=== PATIENT | male | born 1955 | race Caucasian/White ===

== ENCOUNTER → 2018-08-10 08:21 | Outpatient (CLI) | payer OTHER, SELFPAY ==
[2018-08-06 14:12] VITALS: BMI 24.7
[2018-08-10 12:27] LABS: Absolute Lymphocyte Count 1.59 X10^3/ul (0.83-4.51); Absolute Neutrophil Count 2.4 X10^3/uL (2.0-7.7); Basophil# 0.03 X10^3/uL; Basophil% 0.6 % (0-1); Eosinophil# 0.06 X10^3/uL; Eosinophils% 1.3 % (0-5); Hematocrit 46.2 % (40-54); Hemoglobin 14.8 g/dl (13.0-16.5); Lymphocyte # 1.59 X10^3/ul (4.0); Lymphocyte % 34.4 % (19-41); Mean Corpuscular Hgb 32.2 pg (27.0-32.0); Mean Corpuscular Volume 100.7 fL (80-94); Monocyte# 0.53 X10^3/uL; Monocyte% 11.5 % (0-10); Neutrophil # 2.41 X10^3/uL (2.7-7.7); Neutrophil % 52.2 % (47-70); Platelet Count 259 K/mm3 (150-450); RBC Distribution Width CV 12.8 % (11.6-14.6); RBC Distribution Width SD 46.6 fl (35.1-43.9); Red Blood Count 4.59 M/mm3 (4.6-6.2); White Blood Count 4.6 K/mm3 (4.4-11.0)
[2018-08-10 12:33] LABS: POSITIVE COUNT NO; POSITIVE DIFFERENTIAL NO; POSITIVE MORPHOLOGY NO
[2018-08-10 12:38] LABS: AST(SGOT) 27 U/L (15-37); Alanine Aminotransfer ALT/SGPT 33 U/L (16-61); Albumin, Serum 3.7 g/dL (3.2-5.0); Alkaline Phosphatase 84 U/L (45-117); Anion Gap 8 (5-15); BUN 16 mg/dL (7-18); BUN/Creat Ratio 13.7 RATIO (10-20); Calcium,Total 8.6 mg/dL (8.5-10.1); Chloride 107 mmol/L (98-107); Cholesterol 179 mg/dL (200); Creatinine, Serum 1.17 mg/dL (0.70-1.30); EST Glomerular Filtration Rate 67 mL/min (>60); Est Glom Filt Rate - Afr Amer 81 mL/min (>60); Globulin 3.7 g/dL (2.2-4.2); Glucose 89 mg/dL (74-106); High Density Lipoprotein 39 mg/dL; PSA,Total - Annual Screen 0.59 ng/mL (0.00-4.00); Potassium 4.2 mmol/L (3.5-5.1); Protein, Total 7.4 g/dL (6.4-8.2); Sodium Level 143 mmol/L (136-145); Triglycerides 100 mg/dL; Very Low Density Lipoprotein 20 mg/dL (5-40)
== END ==
PROVIDERS: Family Provider Family Medicine; PCP Internal Medicine; Visit Provider Internal Medicine
DX: Z00.00 Encounter for general adult medical examination without abnormal findings (principal); E78.5 Hyperlipidemia, unspecified; K58.9 Irritable bowel syndrome, unspecified; Z12.5 Encounter for screening for malignant neoplasm of prostate
CPT/HCPCS: 36415; 80053; 80061; 84153; 85025; G0103

== ENCOUNTER → 2019-10-23 13:21 | Outpatient (CLI) | payer OTHER, SELFPAY ==
[2019-10-23 12:58] VITALS: BMI 24.7
[2019-10-23 15:54] LABS: CRP < 2.90 mg/L (0.0-3.0); Rheumatoid Factor < 10.0 IU/mL (<15)
[2019-10-23 15:56] LABS: Erythrocyte Sedimentation Rate 12 mm/hr (0-20)
--- OUTSIDE RECORDS SUMMARY | 2020-03-08 07:10 | XMS RPT_ITS | CCD ---
:1955 External Reference #:[id number] Author Organization [facility] Care Team Providers Name Role Phone Carla Looney PA-C Unavailable CHIRAG, (CADMIUM BURNER) Unavailable Unavailable KONTAK, R Unavailable Unavailable KONTAK, R Unavailable Unavailable KONTAK, R Unavailable Unavailable Medications Medication Name Sig Date Prescriber Location No information No information [facility] Surgica l available. available. [facility] ([phone]) Problems Category Problem Name Status Date Location Deficiency and other Anemia due to Active 01-09-2017 - [facility] Rob rgical anemia chronic blood loss [facility] ([id number]) Results Result Name Value Range Unit Interpretation Flag Date Location psa, screening on PSA, Screening 0.64 0.00-2.59 ng/mL Normal 06-29-2017 [facility] ([id number]) Comment: Result Comment: Total PSA te st methodology used is the Electrochemiluminescence Imm unoassay. Performed By: #### PSAS1 ### #[facility] [id number] [place], [place] [phone] progress on 2017-06 PROGRESS HNO ID: [id number]: Epi matthews 06-29-2017 [facility] KontakService: (none)Author Type: [place] PhysicianType: Progress NotesFiled: ([id number]) 06/29/2017 10:19 AMNote Text:Chief ComplaintPatient presents with:Follow Up: med refillHPIRonald P Chelsey is a 62 year old male who presents here today forfollow-up of chronic foot pain. He anticipates alf soon. He usesthe Vicoprofen sporadically for the foot pain , requests refill before hisinsurance eclipses.Otherwise he's in good health. The patient denies dysuria, frequency orhematuria.Past medical history, appointments, medications, allergies reviewed.Previous Medical HistoryPAST MEDICAL HISTORYDiagnosis Date- BPH (benign prostatic hyperplasia) HISTORY- Cancer (HCC) SKIN CA, WITH REMOVAL.- Chronic pain- DJD (degenerative joint disease) of lumbar spine- IBS (irritable bowel syndrome)- Insomnia- OA (osteoarthritis)Previous Surgical HistoryPAST SURGICAL HISTORYProcedure Laterality Date- PAST SURGICAL HISTORY OF 05/2016 some teeth pulled- RECONSTRUCT PROX HUMERAL IMPLANT 2009 Arthroplasty, right shoulderFamily HistoryFAMILY HISTORYProblem Relation Age of Onset- Hypertension Father- Colon Cancer Father- Stroke Father- Prostate Cancer Paternal Uncle- Skin Cancer BrotherPatient AllergiesALLERGIESNo Known AllergiesCurrent MedicationsCurrent Outpatient Prescriptions on File Prior to Visit:HYDROcodone-Ibuprofen (VICOPROFEN) 7.5-200 mg per tablet Take 1 tablet bymouth every 8 hours as needed.traMADol (ULTRAM) 50 mg tablet Take 1-2 tablets by mouth every 8 hours asneeded for Pain.ibuprofen (ADVIL) 200 mg tablet Take 400 mg by mouth twice daily.No current facility-administered medications on file prior to visit.Social HistorySocial History Marital status: Spouse name: Years of education: Number of children: 1Occupational 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 Drug use: No Sexual activity: NoROS:General: Feels well, no weight changes, fever, chills.HEENT: No sinus congestion, earache, sore throat.Cardiac: No chest pain, palpitations, shortness of breathResp: No cough, wheeze.GI: No reflux symptoms, food intolerance, bowel changes.: No urinary frequency, dysuria.MS: No pain or joint complaints.PHYSICAL EXAMINATIONBP 126/86 Pulse 80 Resp 12 Wt 83.7 kg (184 lb 9.6 oz) BMI 25.04kg/k5Apbibqx: Alert and oriented, no distress, pleasant and cooperative.Heart: Regular, normal S1 and S2, no murmurs, rubs, or gallopsLungs: Clear to auscultation bilaterallyAbdomen: BenignExtremities: Feet/ankles without edema, posterior tibial pulses full andsymmetricalboutonniere deformity noted 3rd toes bilat.Health Maintenance ListINFLUENZA(1) due on 01/20/2017DIABETES SCREEN due on 02/12/2017LIPID SCREEN due on 02/12/2019TETANUS due on 2COLORECTAL CANCER SCREENING,SEE MODIFIER due on 2PROSTATE CANCER SCREENING DISCUSSION CompletedHEPATITIS C SCREENING CompletedData reviewedAssessment/Plan:(M77.9) Enthesopathy of ankle and tarsus (primary encounter diagnosis)Comment: chronic painPlan: HYDROcodone-Ibuprofen (VICOPROFEN) 7.5-200 mg per tablet, traMADol (ULTRAM) 50 mg tablet(Z12.5) Screening for prostate cancerComment: JADEN done today. The meaning of a false positive PSA and falsenegative PSA has been discussed, and the patient indicates theirunderstanding of the limitations of this screening test.Plan: PSA/PROSTSPECAG SCRN, PSA/PROSTSPECAG SCRN(G89.29) Other chronic painComment:Plan: HYDROcodone-Ibuprofen (VICOPROFEN) 7.5-200 mg per tablet, traMADol (ULTRAM) 50 mg tablet He'll be weaning off the hydrocodone, he will likely need tocontinue on the tramadol for fdc pain control.Elevated bp on arrival today. Repeat OK, he'll check it with the nurse atwork.Signed Prescriptions Disp Refills HYDROcodone-Ibuprofen (VICOPROFEN) 7.5-200 mg per tablet 60 tablet 0 Sig: Take 1 tablet by mouth every 8 hours as needed for up to 30 days. RHETT Class: C-II EVER: No traMADol (ULTRAM) 50 mg tablet 120 tablet 2 Sig: Take 1-2 tablets by mouth every 8 hours as needed for Pain for upto 90 days. RHETT Class: C-IV EVER: NoRTO: 6 mos if he manages to stretch the med out that long.Epi Guillen MD progress on 2017-01 PROGRESS HNO ID: [id number]: Epi matthews 02-03-2017 [facility] KontakService: (none)Author Type: [place] ([id number]) PhysicianType: Progress NotesFiled: 02/03/2017 1:00 PMNote Text:Pt f/u as above. Pt interviewed and examined.Bp BP 132/84 Pulse 91 Resp 16 Wt 84.8 kg (187 lb) BMI 25.36 kg/m2.PHYSICAL EXAMINATIONBP 132/84 Pulse 91 Resp 16 Wt 84.8 kg (187 lb) BMI 25.36 kg/j5Hyfekkj: Alert and oriented, no distress, pleasant and cooperative.Heart: Regular, normal S1 and S2, no murmurs, rubs, or gallopsLungs: Clear to auscultation bilaterallyAbdomen: BenignExtremities: Feet/ankles without edema, posterior tibial pulses full andsymmetricalAssessment/Plan:(G89.2 9) Other chronic painComment: stable on medications.Plan: HYDROcodone-Ibuprofen (VICOPROFEN) 7.5-200 mg per tablet He predicts taper off when he's off the concrete steps.(M77.9) Enthesopathy of ankle and tarsusComment:Plan: HYDROcodone-Ibuprofen (VICOPROFEN) 7.5-200 mg per tabletOARRS website checked and validated. All prescriptions have beenAPPROPRIATELY filled. No suspicious activity was identified.- 02/03/2017by GORDY Duncanigned Prescriptions Disp Refills HYDROcodone-Ibuprofen (VICOPROFEN) 7.5-200 mg per tablet 60 tablet 0 Sig: Take 1 tablet by mouth every 8 hours as needed. RHETT Class: C-II EVER: No traMADol (ULTRAM) 50 mg tablet 120 tablet 2 Sig: Take 1-2 tablets by mouth every 8 hours as needed for Pain. RHETT Class: C-IV EVER: Khadijah is having fasting labs at [facility].RTO: q 3 mos.Epi Guillen MD PROGRESS HNO ID: [id number]: Epi matthews 02-03-2017 [facility] KontakService: (none)Author Type: [place] ([id number]) PhysicianType: Progress NotesFiled: 02/03/2017 1:00 PMNote Text:Chief ComplaintPatient presents with:Medication reviewHPRefugiomary Mesa is a 61 year old male who presents here today formedication review and is in need of refills.Lower back/shoulder pain and bilateral feet arthritis: Taking Tramadol inthe morning and early afternoon along with Advil 400 mg along with it.Uses vicoprofen for severe pain. Aches pretty bad in the morning inlower back and shoulders and as day progresses get better. Bilateral feetpain persists due to walking in concrete floors. Wants to stop painmedication when he retires. Pain is not changing in frequency orintensity. Has not been taking advil since Monday because he is havinga colonoscopy on Monday.Past medical history, appointments, medications, allergies reviewed.Previous Medical HistoryPAST MEDICAL HISTORYDiagnosis Date- BPH (benign prostatic hyperplasia) HISTORY- Cancer (HCC) SKIN CA, WITH REMOVAL.- Chronic pain- DJD (degenerative joint disease) of lumbar spine- IBS (irritable bowel syndrome)- Insomnia- OA (osteoarthritis)Previous Surgical HistoryPAST SURGICAL HISTORYProcedure Laterality Date- PAST SURGICAL HISTORY OF 05/2016 some teeth pulled- RECONSTRUCT PROX HUMERAL IMPLANT 2009 Arthroplasty, right shoulderFamily HistoryFAMILY HISTORYProblem Relation Age of Onset- Hypertension Father- Colon Cancer Father- Stroke Father- Prostate Cancer Paternal UnclePatient AllergiesALLERGIESNo Known AllergiesCurrent MedicationsCurrent Outpatient Prescriptions on File Prior to Visit:HYDROcodone-Ibuprofen (VICOPROFEN) 7.5-200 mg per tablet Take 1 tablet bymouth every 8 hours as needed.traMADol (ULTRAM) 50 mg tablet Take 1-2 tablets by mouth every 8 hours asneeded for Pain.ibuprofen (ADVIL) 200 mg tablet Take 400 mg by mouth twice daily.No current facility-administered medications on file prior to visit.Social HistorySocial History Marital status: Spouse name: Years of education: Number of children: 1Occupational 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 Drug use: No Sexual activity: NoROS:General: Feels well, no weight changes, fever, chills.HEENT: No sinus congestion, earache, sore throat.Cardiac: No chest pain, palpitations, shortness of breathResp: No cough, wheeze.GI: No reflux symptoms, food intolerance, bowel changes. Denieshematozemia or black tarry stool.: No urinary frequency, dysuria,or hematuriaMS: No pain or joint complaints.EXAM:BP 132/84 Pulse 91 Resp 16 Wt 84.8 kg (187 lb) BMI 25.36 kg/x3Kxqozmu Appearance: Well appearing, alert, in no acute distress,well-hydrated, well nourished..Neck: Supple, no adenopathy; thyroid symmetric, normal size, no bruits.Lungs: Lungs clear to auscultation. No wheezing, rhonchi, rales.Heart: RRR without murmur, gallop, or rubs. No ectopy.Extremities: Feet/ankles with trace edema. Pedal pulses 1+ andsymmetrical. Cap refill less than 3 seconds bilaterally.Health Maintenance ListZOSTAVAX due on 2015 will check with insurance regarding payment andconsiderCOLORECTAL CANCER SCREENING,SEE MODIFIER due on 12/26/2016 gettingColonoscopy on Monday )02/06/2017INFLUENZA(1) due on 01/20/2017[facility] on 02/12/2017 [facility] andwill bring inLIPID SCREEN due on 02/12/2019 [facility] and willbring in results.TETANUS due on 2PROSTATE CANCER SCREENING DISCUSSION CompletedHEPATITIS C SCREENING CompletedASSESSMENT/PLAN:1. Other chronic pain - ICD9: 338.29, ICD10: G89.29- Continue treatment plan for pain, too wean off once retires- Follow-up in 3 months for evaluation of pain- HYDROCODONE 7.5 MG-IBUPROFEN 200 MG TABLET2. Enthesopathy of ankle and tarsus - ICD9: 726.70, ICD10: M77.9- Continue treatment plan for pain, patient to retire in June/Arturo will not be working on hard concrete floors and at that time will wean- HYDROCODONE 7.5 MG-IBUPROFEN 200 MG TABLET take for sever pain- Follow-up in 3 months for evaluation of painOARRS website checked and validated. All prescriptions have beenAPPROPRIATELY filled. No suspicious activity was identified.- 02/03/2017will Nunes PodlogNiranjan torres PodlogJANET torres on 2017-02-03 CNOV Office Visit Normal 02-03-2017 [place] and (LELO) --------MICHELLE MESA [facility] P ([id number]) 1955 MDat e Time Provider Department02/03/17 9:40 AM EPI GUILLEN During Clev eland your visit today, we recorde d the following information about you: Pulse Respiration Blood pressure ( 74002) Weight 91/minute 16/minute 1 84.8 kgJefferanil Guillen MD 02/03/2017 1:00 PM SignedChief ComplaintPatient presents wi th:Medication reviewHPIRonald Jorge Mesa is a 61 year old male who presents here today for medicationrev iew and is in need of refills.Lower back/shoulder pain and bilateral feet arthritis: Taking Tramadol i n themorning and early afternoon along with Advil 400 mg along with it. Usesvicoprofen for severe pa in. Aches ANDquot;pretty bad in the morningANDquot; inlower back and shoulders and as day progres ses get better. Bilateral feet painpersists due to walking in concrete floors. Wants to stop pain m edication whenhe retires. Pain is not changing in frequency or intensity. Has not been takingadvil sin ce Monday because he is having a colonoscopy on Monday.Past medical history, appointments, medic ations, allergies reviewed.Previous Medical HistoryPAST MEDICAL HISTORYDiagnosis Date- BPH ( benign prostatic hyperplasia) HISTORY- Cancer (HCC) SKIN CA, WITH REMOVAL.- Chronic pain- DJD (degenerative joint disease) of lumbar spine- IBS (irritable bowel syndrome)- Insomnia- OA (ost eoarthritis)Previous Surgical HistoryPAST SURGICAL HISTORYProcedure Laterality Date- PAST SURGIC AL HISTORY OF 05/2016 some teeth pulled- RECONSTRUCT PROX HUMERAL IMPLANT 2010 Arthroplasty, right romeo ulderFamily HistoryFAMILY HISTORYProblem Relation Age of Onset- Hypertension Father- Colon C ancer Father- Stroke Father- Prostate Cancer Paternal UnclePatient AllergiesALLERGIESNo Known A llergiesCurrent MedicationsCurrent Outpatient Prescriptions on File Prior to Visit:HYDROcodone-Ibuprof en (VICOPROFEN) 7.5-200 mg per tablet Take 1 tablet by mouthevery 8 hours as needed.traMADol (ULTRAM) 50 mg tablet Take 1-2 tablets by mouth every 8 hours asneeded for Pain.ibuprofen (ADVIL) 200 m g tablet Take 400 mg by mouth twice daily.No current facility-administered medications on file prior to visit.Social HistorySocial History Marital status: Spouse name: Years of education: Number o f children: 1Occupational 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 Drug use: No Sexual activity: NoROS:General: Feels well, no weight changes, fever, chills.HEENT : No sinus congestion, earache, sore throat.Cardiac: No chest pain, palpitations, shortness of b reathResp: No cough, wheeze.GI: No reflux symptoms, food intolerance, bowel changes. Denies hemato zemia orblack tarry stool.: No urinary frequency, dysuria,or hematuriaMS: No pain or join t complaints.EXAM:BP 132/84 Pulse 91 Resp 16 Wt 84.8 kg (187 lb) BMI 25.36 kg/j5Tpzvtjo Appea kraig: Well appearing, alert, in no acute distress, well-hydrated,well nourished..Neck: Supple, no adenopathy; thyroid symmetric, normal size, no bruits.Lungs: Lungs clear to auscultation. No wheezing , rhonchi, rales.Heart: RRR without murmur, gallop, or rubs. No ectopy.Extremities: Feet/ank les with trace edema. Pedal pulses 1+ and symmetrical. Caprefill less than 3 seconds bilaterally.Health Maintenance ListZOSTAVAX due on 2015 will check with insurance regarding payment andconside rCOLORECTAL CANCER SCREENING,SEE MODIFIER due on 12/26/2016 getting Colonoscopyon Monday ) 017INFLUENZA(1) due on 01/20/2017, [facility] due on 02/12/2017 [facility] and willbring inLIPID SCREEN due on 02/12/2019 [facility] and will bringin results.TETANUS due on 2PROSTATE CANCER SCREENING DISCUSSION CompletedHEPATITIS C SCREENING CompletedASSESSMENT/PLAN:1. Other chronic pain - ICD9: 338.29, ICD10: G89.29- Continue treatment plan for pain, too wean off once retires- Follow-up in 3 months for ev aluation of pain- HYDROCODONE 7.5 MG-IBUPROFEN 200 MG TABLET2. Enthesopathy of ankle and ta rsus - ICD9: 726.70, ICD10: M77.9- Continue treatment plan for pain, patient to retire in /July andwill not be working on hard concrete floors and at that time will wean- HYDROCODONE 7.5 M G-IBUPROFEN 200 MG TABLET take for sever pain- Follow-up in 3 months for evaluation of painOARRS webs ite checked and validated. All prescriptions have been APPROPRIATELYfilled. No susp icious activity was identified.- 02/03/2017 by Niranjan Gillespie, Shadia Guillen MD 02/03/2017 1:00 PM SignedPt f/u as above. Pt interviewed and examined.Bp BP 132/84 Puls e 91 Resp 16 Wt 84.8 kg (187 lb) BMI 25.36 kg/m2.PHYSICAL EXAMINATIONBP 132/84 Pulse 91 Resp 16 Wt 84.8 kg (187 lb) BMI 25.36 kg/i3Razblqd: Alert and oriented, no distress, pleas ant and cooperative.Heart: Regular, normal S1 and S2, no murmurs, rubs, or gallopsLungs: Clear to auscu ltation bilaterallyAbdomen: BenignExtremities: Feet/ankles without edema, posterior tibial pulses full andsymmetricalAssessment/Plan:(G89.29) Other chronic painComment: stable on medications.Plan: HYDROco done-Ibuprofen (VICOPROFEN) 7.5-200 mg per tablet He predicts taper off when he's off the concrete s teps.(M77.9) Enthesopathy of ankle and tarsusComment:Plan: HYDROcodone-Ibuprofen (VICOP ROFEN) 7.5-200 mg per tabletOARRS website checked and validated. All prescriptions have been APPR OPRIATELYfilled. No suspicious activity was identified.- 02/03/2017 by GORDY Duncanigned Pres criptions Disp Refills HYDROcodone-Ibuprofen (VICOPROFEN) 7.5-200 mg per tablet 60 tablet 0 Sig: Take 1 tablet by mouth every 8 hours as needed. RHETT Class: C-II EVER: No traMADol (ULTRAM) 50 mg tabl et 120 tablet 2 Sig: Take 1-2 tablets by mouth every 8 hours as needed for Pain. RHETT Class: C-IV EVER: Manjula Rosas is having fasting labs at [facility].RTO: q 3 mos.VENANCIO Duncaneferring Provider : SELF [[id number]]Allergies As of Date: 02/03/2017(No Known Allergies)Date Reviewed: 02/03/2017Reviewed by: Aleisha ([facility]) CAITY Buck - Fully AssessedReason for Visit: Medication review [Other]Vis it Diagnoses:Other chronic pain [G89.29] Enthesopathy of ankle and tarsus [M77.9]Order(s):HYDROcodone- Ibuprofen (VICOPROFEN) 7.5-200 mg per tabletTake 1 tablet by mouth every 8 hours as needed.Disp: 60 tab letRfl: 0 traMADol (ULTRAM) 50 mg tabletTake 1-2 tablets by mouth every 8 hours as needed for Pain.Dis p: 120 tabletRfl: 2Prescriptions as of 02/03/2017 Sig: HYDROCODONE 7.5 MG-IBUPROFEN * Take 1 tablet by mouth every * TRAMADOL 50 MG TABLET Take 1-2 tablets by mouth julio* IBUPROFEN 200 MG TABLET Take 400 mg by mouth twice da*Problem List As Of Date 02/03/2017 Noted Resolved Arthritis (feet) [M 19.90] INVALID FOR* More... Enthesopathy of ankle and tarsus [M77.9] INVALID FOR* Special screeni ng for malignant neoplasms, colo*INVALID FOR* Chronic pain [G89.29] DJD (degenerative joint disease) of lumbar spin*Prescriptions ordered this encounter Disp Refills Start End HYDROCODONE 7.5 MG-IBUPR OFEN 200 MG * 60 t* 0 02/03/2017 Class: Print RX Route: ORAL Sig: Take 1 tablet by mouth every 8 hour s as needed. TRAMADOL 50 MG TABLET 120 * 2 02/03/2017 Class: Print RX Route: ORAL Sig: Take 1-2 ta blets by mouth every 8 hours as needed for Pain.Medications Discontinued During This Encounter HYDROc odone-Ibuprofen (VICOPROFEN) 7* 60 t* 0 10/30/2016 02/03/2017 Class: Print RX Route: ORAL Sig: Take 1 t ablet by mouth every 8 hours as needed. Disc: Reason for discontinue is not on file. traMADol (ULTRA M) 50 mg tablet 120 * 1 09/30/2016 02/03/2017 Class: Print RX Route: ORAL Sig: Take 1-2 tablets by montse th every 8 hours as needed for Pain. Disc: Reason for discontinue is not on file.Encounter Number: [id number] Status:Closed by RADHA GUILLEN MD on 02/03/17 history physical on 2016-12-01 HISTORY HNO ID: [id number]: Antoinette (Lisa) Manjula nathan 12-01-2016 [place] PHYSICAL ThorpeService: (none)Author Type: Nurse Clinic PractitionerType: HANDPFiled: 12/01/2016 [place] 10:36 AMNote Text:Michelle Mesa a 61 ([id number]) year old male who is referred by Dr. Guillen [facility] colonoscopy. The patient has not been seen previously. Thepatient reports a family history of colon cancer in that his father hadthe disease.The patient was seen by Dr. Ayo Lopez for colonoscopy 12/27/11. Theprocedure report has been reviewed and findings as follows:Findings:?? ? The digital rectal exam was normal. Pertinent negatives includenormal?? ? sphincter tone and normal prostate (size, shape, and consistency).The?? ? colon (entire examined portion) appeared normal. It did require some?? ? effort and abdominal support to gain access and transverse theascending?? ? colon but with increased sedation this was achieved.Impression: ?- The entire examined colon is normal.Presenting complaint: The patient denies change in bowel habits or rectalbleeding. Having a bowel movement about every other day. It might be upto four days between bowel movements. The patient tells me for years Iget a sharp pain that moves across my belly. Shortly after that I willhave diarrhea. This occurs about ever couple months.The patient reports that he tends to get gassy intermittently, usually inthe morning. He notes that he does eat ice cream before bed some nights.I have recommended that he try taking Lactaid tablets with the ice creamto see if this decreases the gas.REVIEW OF SYSTEMS:GENERAL: Reported 10 pound weight loss during tooth extraction and newdentures.RESPIRATORY: Negative for cough, hemoptysis, wheezing, COPD, dyspnea orshortness of breathCARDIOVASCULAR: Negative for chest pain, leg swelling, hypertension, CHFor palpitationsGI: The patient states that his appetite has been good. He does gethungry. There has been no nausea, no vomiting. He denies dysphagia anddenies odynophagia. There has not been indigestion or heartburn. There hasnot been regurgitation. Bowel habits have been regular. There hasoccasionally been diarrhea. There has not been constipation. The patientdenies rectal bleeding. There has not been melena. Intermittent abdominalpain that is located in the mid abdomen, as reported above.MUSCULOSKELETAL: Positive for low back pain, shoulders and feet. TakesTramadol.PSYCH: Negative for sleep disturbance, mood disorder and recentpsychosocial stressors.HEMATOLOGY/LYMPHOLOGY Negative for prolonged bleeding, bruising easily orswollen nodesNEURO: No history of headaches, syncope, paralysis, seizures or tremorsAll other reviewed and negative other than HPI.PAST MEDICAL HISTORYDiagnosis Date- BPH (benign prostatic hyperplasia) HISTORY- Cancer (HCC) SKIN CA, WITH REMOVAL.- Chronic pain- DJD (degenerative joint disease) of lumbar spine- IBS (irritable bowel syndrome)- Insomnia- OA (osteoarthritis)PAST SURGICAL XFJOSEU94/2017: PAST SURGICAL HISTORY OF Comment: some teeth [id number]: RECONSTRUCT PROX HUMERAL IMPLANT Comment: Arthroplasty, right shoulderFAMILY HISTORY Hypertension Father Colon Cancer Father Stroke Father Prostate Cancer Paternal UncleCurrent Outpatient Prescriptions:HYDROcodone-Ibuprofen (VICOPROFEN) 7.5-200 mg per tablet Take 1 tablet bymouth every 8 hours as needed. Disp: 60 tablet Rfl: 0traMADol (ULTRAM) 50 mg tablet Take 1-2 tablets by mouth every 8 hours asneeded for Pain. Disp: 120 tablet Rfl: 1ibuprofen (ADVIL) 200 mg tablet Take 400 mg by mouth twice daily. Disp:Rfl:No current facility-administered medications for this visit.SOCIAL HISTORY:Patient is . He has never smoked and reports his alcohol use asnever.PHYSICAL EXAMINATION:Blood pressure 111/73, pulse 77, height 182.9 cm (6'), weight 84.1 kg (185lb 6.4 oz).General Appearance: Well appearing, alert, in no acute distress,well-hydrated, well nourished.Skin: Skin color, texture, turgor normal, no suspicious rashes or lesions.Eyes: Anicteric sclera.Lungs: Lungs clear to auscultation. No wheezing, rhonchi, rales.Heart: RRR without murmur, gallop, or rubs. No ectopy.Abdomen: Normal abdominal exam, Abdomen soft, non-tender. Bowel soundsnormal. No masses, organomegaly.Extremities: No deformities or edema.Peripheral Pulses: Normal.Neurologic: Gait normal. Sensation grossly intact.Impression: family history of colon cancerPlan: This patient will be scheduled for a colonoscopy with MAC. He willbe using GoLytely as the prep. The preparation, as well as the procedure,has been explained in detail. The risks, benefits, anticipated outcomesand possible complications were mentioned. I explained the procedure inunderstandable terms and the patient was given printed material concerningthe planned procedure. The patient had the opportunity to ask questionsconcerning the planned procedure. The patient freely consents to theplanned procedure.The patient is asked to call with any questions for concerns, or shouldthere be any change in health status between now and the scheduledprocedure.I have suggested he try Lactaid tablets with the evening ice cream.I have personally interviewed and examined this patient. I have read theinformation the SENIOR COMPUTER SPECIALIST documented in this encounter. This visit was at least25 minutes in length with a majority of the time spent in review of thepast records with the patient, discussion and counseling.Antoinette Trent RN [employer] WORKER domi on 2016-12-01 CNOV Office Visit Normal 12-01-2016 Dena and ([facility]) --------MICHELLE EMSA P ([id number]) 1955 [facility]12/01/16 9:00 AM ANTOINETTE TRENT ([facility]) [facility] Thomas hernandez During your visit today, we recorded the following information about you: Pulse Blood pressure Weight (0000 0) Height 77/minute 111/73 84.1 kg 1.829 Raymond Trent RN CNP 12/01/2016 10:36 AM Lincoln Patel Chelsey a 61 year old male wh o is referred by Dr. Ruddy barraganance colonoscopy. The patient has not been seen previously. Th e patientreports a family history of colon cancer in that his father had the disease.The patient was seen by Dr. Ayo Lopez for colonoscopy 12/27/11. The procedurereport has been reviewed and findings as fol lows:Findings:?? ? The digital rectal exam was normal. Pertinent negatives include normal?? ? sphincter tone and normal prostate (size, shape, and consistency). The?? ? colon (entire examined portion) ap peared normal. It did require some?? ? effort and abdominal support to gain access and transverse t he ascending?? ? colon but with increased sedation this was achieved.Impression: ?- The entire examined colon is normal.Presenting complaint: The patient denies change in bowel habit s or rectalbleeding. Having a bowel movement ANDquot;about every other dayANDquot;. It mightbe up t o four days between bowel movements. The patient tells me ANDquot;foryears I get a sharp pain that move s across my belly. Shortly after that I willhave diarrheaANDquot;. This occurs about ever couple mon ths.The patient reports that he tends to get gassy intermittently, usually in themorning. He notes that he does eat ice cream before bed some nights. I haverecommended that he try taking Lactaid tablets w ith the ice cream to see ifthis decreases the gas.REVIEW OF SYSTEMS:GENERAL: Reported 10 pound weight loss during tooth extraction and new dentures.RESPIRATORY: Negative for cough, hemoptys is, wheezing, COPD, dyspnea orshortness of breathCARDIOVASCULAR: Negative for chest pain, leg swelling , hypertension, CHF orpalpitationsGI: The patient states that his appetite has been good. He does get h ungry.There has been no nausea, no vomiting. He denies dysphagia and deniesodynophagia. There has not been indigestion or heartburn. There has not beenregurgitation. Bowel habits have been regular. Th ere has occasionally beendiarrhea. There has not been constipation. The patient denies rectal bleedi ng.There has not been melena. Intermittent abdominal pain that is located in themid abdomen, as report ed above.MUSCULOSKELETAL: Positive for low back pain, shoulders and feet. TakesTramadol.PSYCH: Negative for sleep disturba nce, mood disorder and recent psychosocialstressors.HEMATO LOGY/LYMPHOLOGY Negative for prolonged bleeding, bruising easily orswollen nodesNEURO: No history of he adaches, syncope, paralysis, seizures or tremorsAll other reviewed and negative other than HPI.PAST MEDICAL HISTORYDiagnosis Date- BPH (benign prostatic hyperplasia) HISTORY- Cancer (HCC) SKIN C A, WITH REMOVAL.- Chronic pain- DJD (degenerative joint disease) of lumbar spine- IBS (irritable bowel syndrome)- Insomnia- OA (osteoarthritis)PAST SURGICAL PFFVQIP14/2017: PAST SURGICAL HISTORY OF Comment: some teeth [id number]: RECONSTRUCT PROX HUMERAL IMPLANT Comment: Arthroplasty, right shoulder FAMILY HISTORY Hypertension Father Colon Cancer Father Stroke Father Prostate Cancer Paternal Unc leCurrent Outpatient Prescriptions:HYDROcodone- Ibuprofen (VICOPROFEN) 7.5-200 mg per tablet Take 1 tablet by mouthevery 8 hours as needed. Disp: 60 tablet Rfl: 0traMADol (ULTRAM) 50 mg tablet Take 1 -2 tablets by mouth every 8 hours asneeded for Pain. Disp: 120 tablet Rfl: 1ibuprofen (ADVIL) 200 mg ta blet Take 400 mg by mouth twice daily. Disp: Rfl:No current facility-administered medica tions for this visit.SOCIAL HISTORY:Patient is . He has never smoked and reports his alcoh ol use as never.PHYSICAL EXAMINATION:Blood pressure 111/73, pulse 77, height 182.9 cm (6'), weight 84.1 kg (185 lb6.4 oz).General Appearance: Well appearing, alert, in no acute distress, well-hydrate d,well nourished.Skin: Skin color, texture, turgor normal, no suspicious rashes or lesions.Eyes: Anic teric sclera.Lungs: Lungs clear to auscultation. No wheezing, rhonchi, rales.Heart: RRR without mur mur, gallop, or rubs. No ectopy.Abdomen: Normal abdominal exam, Abdomen soft, non-tender. Bowel soun ds normal.No masses, organomegaly.Extremities: No deformities or edema.Peripheral Pulses: Nor mal.Neurologic: Gait normal. Sensation grossly intact.Impression: family history of colon cancerPlan: This patient will be scheduled for a colonoscopy with MAC. He will beusing GoLytely as the prep . The preparation, as well as the procedure, hasbeen explained in detail. The risks, benefits, anticip ated outcomes andpossible complications were mentioned. I explained the procedure inunderstandable t erms and the patient was given printed material concerning theplanned procedure. The patient had t he opportunity to ask questions concerningthe planned procedure. The patient freely consents to t he planned procedure.The patient is asked to call with any questions for concerns, or should therebe any change in health status between now and the scheduled procedure.I have suggested he try Lactaid tab lets with the evening ice cream.I have personally interviewed and examined this patient. I have read th einformation the SENIOR COMPUTER SPECIALIST documented in this encounter. This visit was at least 25minutes in length with a m ajority of the time spent in review of the pastrecords with the patient, discussion and counseling.DORITA Clemons RN CNP 12/01/2016 9:42 AM AddendumConsider trying Lact aid tablets to take with the ice cream.Please follow the provided instructions for colonoscopy . You will be usingGoLytely as the laxative during the preparation. You may start the laxative asear ly as 1:00 in the afternoon.You will have the deeper sedation we call MAC, at [facility]. Dr Char mora perform it.Please call the home care scheduler, at the number provided, to schedule your procedure.Refe rring Provider: EPI GUILLEN [[id number]]Allergies As of Date: 12/01/2016(No Known Allergie s)Date Reviewed: 12/01/2016Reviewed by: Kera Queen SENIOR COMPUTER SPECIALIST - Fully AssessedReason for Visit: co dharmesh consult [Other]Primary Visit Diagnosis:Family history of colon cancer in father [Z80.0]Order(s):CO LONOSCOPY GEN ANES [[id number]] Order #: [id number] FUTURE peg 3350-electrolytes (COLYTE) 2 40-22.72-6.72 -5.84 gram solutionTake 4,000 mL by mouth one time only for 1 dose.Disp: 1 BottleRfl: 0P rescriptions as of 12/01/2016 Sig: HYDROCODONE 7.5 MG-IBUPROFEN * Take 1 tablet by mouth every * TRAM ADOL 50 MG TABLET Take 1-2 tablets by mouth julio* IBUPROFEN 200 MG TABLET Take 400 mg by mouth twice d a* PEG 3350 240 GRAM-ELECTROLYTE* Take 4,000 mL by mouth one ti*Problem List As Of Date 12/01/2016 N oted Resolved Arthritis (feet) [M19.90] INVALID FOR* More... Enthesopathy of ankle and tarsus [M77.9] INVALID FOR* Special screening for malignant neoplasms, colo*INVALID FOR* Chronic pain [G89.29] DJD (d egenerative joint disease) of lumbar spin* Other instructions from your clinician: Consider trying L actaid tablets to take with the ice cream. Please follow the provided instructions for colonoscopy . You will be using GoLytely as the laxative during the preparation. You may start the laxative as ea rly as 1:00 in the afternoon. You will have the deeper sedation we call MAC, at [facility]. Dr Lopez will perform it. Please call the home care scheduler, at the number provided, to schedule your procedure.P rescriptions ordered this encounter Disp Refills Start End PEG 3350 240 GRAM-ELECTROLYTES 22.72* 1 B o* 0 12/01/2016 12/01/2016 Route: ORAL Sig: Take 4,000 mL by mouth one time only for 1 dose.Medicat ions Discontinued During This Encounter melatonin 3 mg ORAL Tab 0 06/14/2010 12/01/2016 Class: O TC Route: ORAL Sig: one tablet at bedtime Disc: Discontinued by PatientEncounter Number: [id number] Status:Closed by ANTOINETTE TRENT CNP on 12/01/16 Encounters Date Type Reason Provider Location 06-29-2017 - Ambulatory EPI talbert 06-29-2017 [place] (0000 0) 02-03-2017 - Ambulatory EPI GUILLEN [facility] 02-03-2017 [place] (0000 0) 12-01-2016 - Ambulatory ANTOINETTE ([facility]) [facility] hernandez [facility] 12-02-2016 EPI GUILLEN [place] ( [id number]) Procedures Procedure Name Date Provider Location Diagnostic colonoscopy 01-09-2017 - Carla Looney [facility] 01-09-2017 [facility] ([id number]) Plan of Treatment Plan Description Date Location Appointment Appointment 02-06-2017 - 02-06-2017 [facility] ([id number]) Colonoscopy Colonoscopy 01-09-2017 - 01-09-2017 [facility] ([id number]) Summary Purpose Family History No Family History Records Found Advance Directives No Advanced Directives Records Found Additional Source Comments FOR RECORDS PERTAINING TO PATIENTS WHO ARE OR HAVE BEEN ENROLLED IN A CHEMICAL DEPENDENCY/SUBSTANCE ABUSE PROGRAM, SOME INFORMATION MAY BE OMITTED. This clinical summary was aggregated from multiple sources. Caution should be exercised in using it in the provision of clinical care. This summary normalizes information from multiple sources, and as a consequence, information in this document may materially changethe coding, format and clinical context of patient data. In addition, data may be omittedin some cases. CLINICAL DECISIONS SHOULD BE BASED ON THE PRIMARY CLINICAL RECORDS. [facility] provides no warranty or guarantee of the accuracy or completeness of information in this document. UNRECOGNIZED CONTENT PROVIDED BELOW FOR UNRECOGNIZED SECTION No Status Records Found UNRECOGNIZED CONTENT PROVIDED BELOW FOR UNRECOGNIZED SECTION INFORMATION SOURCE DATE CREATED AUTHOR AUTHOR'S ORGANIZATIO N 11/13/2017 [facility] cheo
== END ==
PROVIDERS: PCP Internal Medicine; Referring Provider Internal Medicine; Visit Provider Internal Medicine
DX: M19.90 Unspecified osteoarthritis, unspecified site (principal)
CPT/HCPCS: 36415; 85652; 86140; 86431

== ENCOUNTER → 2020-04-03 09:06 | Outpatient (CLI) | payer MEDICARE, BC, SELFPAY ==
[2020-04-03 08:41] VITALS: BMI 26.2
[2020-04-03 12:57] LABS: Absolute Lymphocyte Count 0.98 X10^3/uL (0.83-4.51); Absolute Neutrophil Count 4.3 X10^3/uL (2.0-7.7); Basophil# 0.02 X10^3/uL; Basophil% 0.3 % (0-1); Eosinophil# 0.06 X10^3/uL; Hematocrit 45.9 % (40-54); Hemoglobin 14.6 g/dL (13.0-16.5); Lymphocyte # 0.98 X10^3/ul (4.0); Lymphocyte % 16.4 % (19-41); Mean Corp Hgb Conc 31.8 g/dL (32-36); Mean Corpuscular Hgb 32.4 pg (27.0-32.0); Monocyte# 0.65 X10^3/uL; Monocyte% 10.9 % (0-10); NRBC Flagged by Analyzer 0 % (0-5); Neutrophil # 4.26 X10^3/uL (2.7-7.7); Neutrophil % 71.2 % (47-70); Platelet Count 276 K/mm3 (150-450); RBC Distribution Width CV 12.6 % (11.6-14.6); RBC Distribution Width SD 47.9 fl (35.1-43.9)
[2020-04-03 13:23] LABS: AST(SGOT) 28 U/L (15-37); Alanine Aminotransfer ALT/SGPT 42 U/L (16-61); Albumin, Serum 3.7 g/dL (3.2-5.0); Alkaline Phosphatase 78 U/L (45-117); Anion Gap 7 (5-15); BUN 21 mg/dL (7-18); BUN/Creat Ratio 17.1 RATIO (10-20); Calcium,Total 8.5 mg/dL (8.5-10.1); Chloride 108 mmol/L (98-107); Cholesterol 211 mg/dL (200); Creatinine, Serum 1.23 mg/dL (0.70-1.30); EST Glomerular Filtration Rate 63 mL/min (>60); Est Glom Filt Rate - Afr Amer 76 mL/min (>60); Globulin 3.6 g/dL (2.2-4.2); Glucose 113 mg/dL (74-106); High Density Lipoprotein 42 mg/dL; Potassium 3.9 mmol/L (3.5-5.1); Protein, Total 7.3 g/dL (6.4-8.2); Sodium Level 141 mmol/L (136-145); Triglycerides 111 mg/dL; Very Low Density Lipoprotein 22 mg/dL (5-40)
== END ==
PROVIDERS: PCP Internal Medicine; Referring Provider Internal Medicine; Visit Provider Internal Medicine
DX: E78.5 Hyperlipidemia, unspecified (principal); K58.9 Irritable bowel syndrome, unspecified
CPT/HCPCS: 36415; 80053; 80061; 85025

== ENCOUNTER → 2020-04-27 09:37 | Outpatient (CLI) | payer MEDICARE, BC, SELFPAY ==
[2020-04-03 08:41] VITALS: BMI 26.2
[2020-04-27 12:43] LABS: Vitamin B12 448 pg/mL (211-911)
[2020-04-27 12:48] LABS: Hemoglobin A1c 5.4 % (3.8-5.6)
== END ==
PROVIDERS: PCP Internal Medicine; Visit Provider Internal Medicine
DX: D64.9 Anemia, unspecified (principal); R73.9 Hyperglycemia, unspecified
CPT/HCPCS: 36415; 82607; 82746; 83036

== ENCOUNTER 2020-07-28 17:38 | Outpatient (RCR) | payer MEDICARE, BC, SELFPAY ==
[2020-04-03 08:41] VITALS: BMI 26.2
[2020-07-28] MEDS: COVID-19 VACC, MRNA(PFIZER)/PF 30 MCG/0.3 ML SYRINGE IM (08:23)
[2020-08-18] MEDS: COVID-19 VACC, MRNA(PFIZER)/PF 30 MCG/0.3 ML SYRINGE IM (08:29)
== END 2020-10-27 23:59 ==
LOC: IMMUN 17:38
PROVIDERS: PCP Internal Medicine; Visit Provider Family Medicine
DX: Z23 Encounter for immunization (principal)
CPT/HCPCS: 0001A; 0002A; 91300

== ENCOUNTER → 2021-04-02 08:57 | Outpatient (CLI) | payer MEDICARE, BC, SELFPAY ==
[2021-04-02 12:27] LABS: Absolute Lymphocyte Count 1.17 X10^3/uL (0.83-4.51); Absolute Neutrophil Count 2.8 X10^3/uL (2.0-7.7); Basophil# 0.03 X10^3/uL; Basophil% 0.6 % (0-1); Eosinophils% 2.1 % (0-5); Hematocrit 45.7 % (40-54); Hemoglobin 15.1 g/dL (13.0-16.5); Lymphocyte # 1.17 X10^3/ul (0.83-4.51); Lymphocyte % 24.8 % (19-41); Mean Corpuscular Hgb 33.2 pg (27.0-32.0); Mean Corpuscular Volume 100.4 fL (80-94); Mean Platelet Vol. 9.8 fl (6.2-12.0); Monocyte# 0.56 X10^3/uL; Monocyte% 11.9 % (0-10); NRBC Flagged by Analyzer 0 % (0-5); Neutrophil # 2.84 X10^3/uL (2.7-7.7); Neutrophil % 60.4 % (47-70); Platelet Count 271 K/mm3 (150-450); RBC Distribution Width CV 13.2 % (11.6-14.6); RBC Distribution Width SD 48.6 fl (35.1-43.9); Red Blood Count 4.55 M/mm3 (4.6-6.2); White Blood Count 4.7 K/mm3 (4.4-11.0)
[2021-04-02 13:01] LABS: ALB/GLOB Ratio 0.9 RATIO (0.9-2.4); AST(SGOT) 24 U/L (15-37); Alanine Aminotransfer ALT/SGPT 42 U/L (16-61); Albumin, Serum 3.5 g/dL (3.2-5.0); Alkaline Phosphatase 81 U/L (45-117); Anion Gap 5 (5-15); BUN 18 mg/dL (7-18); BUN/Creat Ratio 16.1 RATIO (10-20); Calcium,Total 8.9 mg/dL (8.5-10.1); Chloride 107 mmol/L (98-107); Cholesterol 200 mg/dL (200); Creatinine, Serum 1.12 mg/dL (0.70-1.30); EST Glomerular Filtration Rate 70 mL/min (>60); Est Glom Filt Rate - Afr Amer 84 mL/min (>60); Globulin 4.1 g/dL (2.2-4.2); Glucose 99 mg/dL (74-106); High Density Lipoprotein 38 mg/dL; Potassium 4.2 mmol/L (3.5-5.1); Protein, Total 7.6 g/dL (6.4-8.2); Sodium Level 139 mmol/L (136-145); Triglycerides 132 mg/dL; Very Low Density Lipoprotein 26 mg/dL (5-40)
== END ==
PROVIDERS: PCP Internal Medicine; Referring Provider Internal Medicine; Visit Provider Internal Medicine
DX: E78.5 Hyperlipidemia, unspecified (principal)
CPT/HCPCS: 36415; 80053; 80061; 85025

== ENCOUNTER → 2023-03-08 | Outpatient (CLI) | payer MEDICARE, SELFPAY ==
[2023-03-08 12:40] LABS: Absolute Lymphocyte Count 1.39 X10^3/uL (0.83-4.51); Absolute Neutrophil Count 2.5 X10^3/uL (2.0-7.7); Basophil# 0.04 X10^3/uL; Basophil% 0.9 % (0-1); Eosinophil# 0.17 X10^3/uL; Eosinophils% 3.7 % (0-5); Hemoglobin 14.8 g/dL (13.0-16.5); Lymphocyte # 1.39 X10^3/ul (0.83-4.51); Lymphocyte % 29.9 % (19-41); Mean Corp Hgb Conc 32.2 g/dL (32-36); Mean Corpuscular Hgb 32.8 pg (27.0-32.0); Mean Platelet Vol. 10.1 fl (6.2-12.0); Monocyte# 0.58 X10^3/uL; Monocyte% 12.5 % (0-10); NRBC Flagged by Analyzer 0 % (0-5); Neutrophil # 2.46 X10^3/uL (2.7-7.7); Neutrophil % 52.8 % (47-70); Platelet Count 222 K/mm3 (150-450); RBC Distribution Width CV 12.6 % (11.6-14.6); RBC Distribution Width SD 47.3 fl (35.1-43.9); Red Blood Count 4.51 M/mm3 (4.6-6.2); White Blood Count 4.7 K/mm3 (4.4-11.0)
[2023-03-08 14:04] LABS: ALB/GLOB Ratio 0.9 RATIO (0.9-2.4); AST(SGOT) 48 U/L (15-37); Alanine Aminotransfer ALT/SGPT 57 U/L (16-61); Albumin, Serum 3.7 g/dL (3.2-5.0); Alkaline Phosphatase 79 U/L (45-117); Anion Gap 6 (5-15); BUN 23 mg/dL (7-18); BUN/Creat Ratio 22.8 RATIO (10-20); Chloride 108 mmol/L (98-107); Cholesterol 180 mg/dL (200); Creatinine, Serum 1.01 mg/dL (0.70-1.30); EST Glomerular Filtration Rate 78 mL/min (>60); Est Glom Filt Rate - Afr Amer 95 mL/min (>60); Glucose 105 mg/dL (74-106); High Density Lipoprotein 44 mg/dL; Protein, Total 7.7 g/dL (6.4-8.2); Sodium Level 139 mmol/L (136-145); T4 Free Direct 0.73 ng/dL (0.76-1.46); Thyroid Stim Hormone (TSH) 2.97 uIU/mL (0.358-3.74); Triglycerides 160 mg/dL; Very Low Density Lipoprotein 32 mg/dL (5-40)
== END | disposition home or self-care (01) ==
LOC: BIMLAB 11:32
PROVIDERS: PCP Internal Medicine; Referring Provider Internal Medicine; Visit Provider Internal Medicine
DX: I10 Essential (primary) hypertension (principal); E78.5 Hyperlipidemia, unspecified
CPT/HCPCS: 36415; 80053; 80061; 84439; 84443; 85025

== ENCOUNTER 2023-09-15 10:52 | Outpatient (CLI) | payer MEDICARE, SELFPAY ==
[2023-09-15 12:34] LABS: Absolute Lymphocyte Count 1.42 X10^3/uL (0.83-4.51); Basophil# 0.02 X10^3/uL; Basophil% 0.4 % (0-1); Eosinophil# 0.09 X10^3/uL; Eosinophils% 1.7 % (0-5); Hematocrit 45.1 % (40-54); Hemoglobin 14.9 g/dL (13.0-16.5); Lymphocyte # 1.42 X10^3/ul (0.83-4.51); Lymphocyte % 27.3 % (19-41); Mean Corpuscular Hgb 33.1 pg (27.0-32.0); Mean Corpuscular Volume 100.2 fL (80-94); Monocyte# 0.69 X10^3/uL; Monocyte% 13.3 % (0-10); NRBC Flagged by Analyzer 0 % (0-5); Neutrophil # 2.97 X10^3/uL (2.7-7.7); Neutrophil % 57.1 % (47-70); Platelet Count 256 K/mm3 (150-450); RBC Distribution Width CV 12.7 % (11.6-14.6); RBC Distribution Width SD 46.8 fl (35.1-43.9); White Blood Count 5.2 K/mm3 (4.4-11.0)
[2023-09-15 13:43] LABS: AST(SGOT) 28 U/L (15-37); Alanine Aminotransfer ALT/SGPT 34 U/L (16-61); Albumin, Serum 3.6 g/dL (3.2-5.0); Alkaline Phosphatase 92 U/L (45-117); Anion Gap 5 (5-15); BUN 29 mg/dL (7-18); Chloride 108 mmol/L (98-107); Creatinine, Serum 1.16 mg/dL (0.70-1.30); EST Glomerular Filtration Rate 66 mL/min (>60); Est Glom Filt Rate - Afr Amer 80 mL/min (>60); Globulin 3.7 g/dL (2.2-4.2); Glucose 117 mg/dL (74-106); Potassium 4.4 mmol/L (3.5-5.1); Protein, Total 7.3 g/dL (6.4-8.2); Sodium Level 138 mmol/L (136-145)
--- NOTE | 2023-09-15 14:24 | RAD_ITS ---
EXAM: XR LEFT SHOULDER COMPLETE, 2 OR MORE VIEWS CLINICAL INDICATION: bilateral pain TECHNIQUE: Two or more views of the left shoulder. COMPARISON: Contralateral shoulder on the same date FINDINGS: BONES/JOINTS: Mild acromioclavicular and glenohumeral joint arthrosis. No acute fracture. No subluxation. Normal alignment. No sclerotic or destructive changes observed. SOFT TISSUES: No significant abnormality. No soft tissue swelling or gas. No radiopaque foreign body. RAD/Shoulder min 2 Views IMPRESSION: Mild acromioclavicular and glenohumeral joint arthrosis. No acute osseous findings. Electronically Signed: Alberto Austin DO at 16:39 EDT ,
--- NOTE | 2023-09-15 14:26 | RAD_ITS ---
EXAM: XR RIGHT SHOULDER COMPLETE, 2 OR MORE VIEWS CLINICAL INDICATION: Bilateral Shoulder Pain TECHNIQUE: Two or more views of the right shoulder. COMPARISON: Contralateral shoulder on the same date. FINDINGS: BONES/JOINTS: Moderate acromioclavicular joint and mild glenohumeral joint arthrosis. No acute fracture. No subluxation. Normal alignment. No sclerotic or destructive changes observed. SOFT TISSUES: No significant abnormality. No soft tissue swelling or gas. No radiopaque foreign body. RAD/Shoulder min 2 Views IMPRESSION: Moderate acromioclavicular joint and mild glenohumeral joint arthrosis. No acute findings. Electronically Signed: Alberto Austin DO at 17:31 EDT ,
== END 2023-09-15 23:59 | disposition home or self-care (01) ==
PROVIDERS: PCP Internal Medicine; Referring Provider Internal Medicine; Visit Provider Internal Medicine
DX: M25.511 Pain in right shoulder (principal); M25.512 Pain in left shoulder; Z12.5 Encounter for screening for malignant neoplasm of prostate; I10 Essential (primary) hypertension
CPT/HCPCS: 36415; 73030; 80053; 84153; 85025; G0103

== ENCOUNTER 2023-09-29 09:03 | Outpatient (RCR) | payer MEDICARE, SELFPAY ==
--- NOTE | 2023-09-29 11:09 | HP.PTEVAL ---
Patient's Visit Information Visit Information Visit Information: MICHELLE MESA is a 68 year old M referred to Physical Therapy by Dr. Naa Delcid MD with a diagnosis of PAIN IN RIGHT SHOULDER ,PAIN IN LEFT SHOULDER. Date of Evaluation: 09/29/23 Physical Therapist: Giovani Lew PT, Cert MDT, OCS Visit Plan Frequency: 2x /Week Duration: 4 Weeks Plan: PATIENT HAS H/O LONG HEAD BICEP TORN PT INTERVENTIONS POSTURAL EX'S ,RTC/SCAPULAR , ACTIVITY MODIFICATION AND MODALITIES NEEDED Subjective Subjective: This 68 y/o male presents to physical therapy with bilateral shoulder pain. Patient has had shoulder pain worse right > left for many years which progressively worse past several weeks. Patient has x-rays showed OA right > left . Patient has been taking meloxicam . Patient has torn long head bicep tendon 20 years and had surgery 15 years ago arthroscopic remove spur. Patient located global and lateral deltoid with symptoms described as ache. Aggravating factors reaching and lift OH . Alleviating factors medication and test. Patient denies paresthesia/tingling . Patient is sleeping okay at night. Patient pain affects QOL and function yard work. Patient goals to decrease pain. 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 Pain Right Shoulder: Pain Intensity (Out of 10): 3 Pain Intensity Range: 10 Left Shoulder: Pain Intensity (Out of 10): 3 Pain Intensity Range: 10 Objective Objective: POSTURE: rounded shoulders head forward PALAPTION: left long head biceps tender OBSERVATION: right long bicep torn right NEURO: denies paresthesia/tingling AROM: flexion shoulder flexion 160 right ,left 165 degrees ,abduction 155 degrees right left 160 degrees , ER 90 degrees IR T10 MMT: ( peak force) infraspinatus left 18.1,left 19.2,subscapularis left 25.8 ,right 24.8 ,supraspinatus right 18.5 ,left 19.2 ,deltoid 17.6 left ,right 17.8 CAPUSLAR RESTRICTION: WFL SACPULAR HUMERAL : 1:1 ratio Special Tests R Shoulder External Rotation Lag Test - RC Tear: Negative R Shoulder Lift Off Test - Subscapular Tear: Negative R Shoulder Drop Sign - IS Test: Negative R Shoulder Empty Can - SS: Negative R Shoulder Neer - Impingement: Positive R Shoulder Moyer Willie - Impingement: Positive R Shoulder Speeds Test - Labrum/Biceps: Negative L Shoulder External Rotation Lag Test - RC Tear: Negative L Shoulder Drop Sign - IS Test: Negative L Shoulder Empty Can - SS: Negative L Shoulder Belly Press - SupScap: Positive L Shoulder Neer - Impingement: Positive L Shoulder Moyer Willie - Impingement: Positive L Shoulder Speeds Test - Labrum/Biceps: Negative L Shoulder O'[place]riens - SLAP/A-C: Negative Balance/Special Test Scores Quick DASH Score: 27.2725 Goals Goal 1:: Patient to be I with HEP for shoulders Goal Time Frame: 4-6 Weeks Goal 2:: Patient to demonstrate 50% improvement with with less pain and improved function Goal Time Frame: 4-6 Weeks Goal 3:: Patient to improve shoulder oswestry by 5 points or > to improve QOL and function Goal Time Frame: 4-6 Weeks Goal 4:: Patient to improve peak force RTC and deltoid by 5-10 # to improve function Goal Time Frame: 4-6 Weeks Goal 5:: Patient to improve ADL's and housework with min limitations. Goal Time Frame: 4-6 Weeks Rehabilitation Potential Physical Therapy Diagnosis: This patient has bilateral shoulder pain with impingement with pain ,some weakness RTC and decrease posture with h/o right toen long head bicep tendon x20 years ago arthroscopic thus benefit from skilled PT Rehabilitation Potential: Good Anticipated Interventions Patient/Client Instruction: Educate patient on: Condition and Plan of Care For the Purpose of:: To decrease pain, To increase ROM, To improve muscle performance and motor function, To improve ability to perform ADL's, To increase tolerance to activity/condition/position, To improve ability of physical actions for home/community/work/leisure, To improve health of tissue, To decrease soft tissue restriction, To increase flexibility/ROM and To reduce risk of recurrence Therapeutic Exercise to Include: Strength training, Postural training, Flexibilty training, Active ROM and Scapular Strength/Stabilization Comment: RTC For the Purpose of:: To decrease pain, To increase ROM, To improve muscle performance and motor function, To improve ability to perform ADL's, To increase tolerance to activity/condition/position, To improve ability of physical actions for home/community/work/leisure, To improve health of tissue, To decrease soft tissue restriction, To increase flexibility/ROM, To reduce risk of recurrence and To improve tolerance to ADL's TENS: Yes IF ES: Yes Cryotherapy (ice pack, ice massage): Yes Thermo therapy (hot pack): Yes Ultrasound (thermal/non thermal): Yes For the Purpose of:: To decrease pain, To increase ROM, To improve health of tissue and To decrease soft tissue restriction Text: Thank you for the opportunity to evaluate your patient. For Medicare and Medicare HMO plans, please review the plan of care and approve it. It will need to be FAXED BACK to us at [phone] for Medicare purposes. For Medicare only, by signing this I certify the plan of care. Please let me know if there are questions or concerns regarding this plan of care. Physician Signature: Date:
--- NOTE | 2023-12-22 11:54 | HP.PT.NRP ---
Patient Information Patient Information: MICHELLE MESA was seen in my office for initial evaluation on 09/29/23. The following Plan of Care was established for this patient: POC Established Initial Frequency: 2x /Week Initial Duration: 4 Weeks Anticipated Interventions Patient/Client Instruction: Educate patient on: Condition and Plan of Care For the Purpose of:: To decrease pain, To increase ROM, To improve muscle performance and motor function, To improve ability to perform ADL's, To increase tolerance to activity/condition/position, To improve ability of physical actions for home/community/work/leisure, To improve health of tissue, To decrease soft tissue restriction, To increase flexibility/ROM and To reduce risk of recurrence Therapeutic Exercise to Include: Strength training, Postural training, Flexibilty training, Active ROM and Scapular Strength/Stabilization For the Purpose of:: To decrease pain, To increase ROM, To improve muscle performance and motor function, To improve ability to perform ADL's, To increase tolerance to activity/condition/position, To improve ability of physical actions for home/community/work/leisure, To improve health of tissue, To decrease soft tissue restriction, To increase flexibility/ROM, To reduce risk of recurrence and To improve tolerance to ADL's TENS: Yes IF ES: Yes Cryotherapy (ice pack, ice massage): Yes Thermo therapy (hot pack): Yes Ultrasound (thermal/non thermal): Yes For the Purpose of:: To decrease pain, To increase ROM, To improve health of tissue and To decrease soft tissue restriction Last Seen Last Seen: This patient was last seen in our office . Pertinent comments regarding their Physical therapy will appear below: Patient seen for PT HEP RTC strengthening and posture for shoulder pain At this point I will be discontinuing this patient from physical therapy. I would be happy to see this patient again in the future if found appropriate by the physician. Thank you! Giovani Lew, PT, Cert MDT, OCS Balance/Gait/Functional tests Balance/Special Test Scores Quick DASH Score: 27.2725
== END 2023-09-29 19:00 | disposition home or self-care (01) ==
LOC: PT 09:03
PROVIDERS: PCP Internal Medicine; Referring Provider Internal Medicine; Visit Provider Internal Medicine
DX: M25.511 Pain in right shoulder (principal); M25.512 Pain in left shoulder
CPT/HCPCS: 97110; 97162

== ENCOUNTER → 2023-10-04 | Outpatient (CLI) | payer MEDICARE, SELFPAY ==
[2023-10-04 18:22] LABS: Vitamin B12 > 2000 pg/mL (211-911)
== END | disposition home or self-care (01) ==
LOC: BIMLAB 10:50
PROVIDERS: PCP Internal Medicine; Visit Provider Internal Medicine
DX: D75.89 Other specified diseases of blood and blood-forming organs (principal)
CPT/HCPCS: 36415; 82607

== ENCOUNTER → 2024-03-18 | Outpatient (CLI) | payer MEDICARE, SELFPAY ==
[2024-03-18 12:54] LABS: ALB/GLOB Ratio 0.9 RATIO (0.9-2.4); AST(SGOT) 30 U/L (15-37); Alanine Aminotransfer ALT/SGPT 50 U/L (16-61); Albumin, Serum 3.6 g/dL (3.2-5.0); Alkaline Phosphatase 100 U/L (45-117); Anion Gap 1 (5-15); BUN 28 mg/dL (7-18); BUN/Creat Ratio 25.2 RATIO (10-20); Calcium,Total 9.6 mg/dL (8.5-10.1); Chloride 112 mmol/L (98-107); Cholesterol 191 mg/dL (200); Creatinine, Serum 1.11 mg/dL (0.70-1.30); EST Glomerular Filtration Rate 70 mL/min (>60); Est Glom Filt Rate - Afr Amer 85 mL/min (>60); Globulin 3.8 g/dL (2.2-4.2); Glucose 100 mg/dL (74-106); High Density Lipoprotein 47 mg/dL; Potassium 4.9 mmol/L (3.5-5.1); Protein, Total 7.4 g/dL (6.4-8.2); Sodium Level 140 mmol/L (136-145); Triglycerides 209 mg/dL; Very Low Density Lipoprotein 42 mg/dL (5-40)
== END | disposition home or self-care (01) ==
LOC: BIMLAB 10:34
PROVIDERS: PCP Internal Medicine; Referring Provider Internal Medicine; Visit Provider Internal Medicine
DX: I10 Essential (primary) hypertension (principal); E78.5 Hyperlipidemia, unspecified
CPT/HCPCS: 36415; 80053; 80061

== ENCOUNTER 2024-08-15 07:25 | Day surgery (SDC) | payer MEDICARE, SELFPAY ==
[2024-08-15] VITALS (9 sets, daily range): BP systolic 112–131; BP diastolic 84–93; PULSE 73–82; RESP 16–18; TEMP 36.6–36.8; O2SAT 95–100; BMI 27.3
--- NOTE | 2024-08-15 08:19 | HP.PCM_ITS ---
HPI - General HPI Narrative MICHELLE MESA, is a 69 M who presents for screening colonoscopy. His last colonoscopy was about 7 years ago. He was recommended by his PCP to have another 1 due to family history. Patient has family history of colon cancer in his father. He denies abdominal pain or blood in his stool. [facility] Medical History (Updated 08/12/24 @ 13:46 by Danielle Yao) Wears dentures Wears glasses Cancer Alcohol use Back pain Non-smoker Hemorrhoids Family history of colon cancer in father Osteoarthritis Macrocytosis Colon cancer screening Bilateral shoulder pain Vertigo Headache Change in skin mole Health care maintenance Memory changes Hypertension Chronic back pain IBS (irritable bowel syndrome) History of skin cancer Arthritis Home Medications ?Medication ?Instructions ?Recorded ?Last Taken ?Type diphenhydramine 25 1 tab PO QHS PRN sleep 08/03 Unknown History mg-acetaminophen 500 mg tablet (Tylenol PM Extra Strength) diphenhydramine HCl 25 mg capsule 25 mg PO QHS PRN sle ep 08/03/18 Unknown History (Benadryl) multivitamin 1 tab PO DAILY 07/02/21 Unkn own History meloxicam 15 mg tablet See Rx Instructions .Route 1 06/15/23 Unknown Rx .COMPLEX #90 tabs dicyclomine 20 mg tablet 20 mg PO TID PRN abdominal 1 07/17/23 Unknown Rx discomfort #90 tabs ibuprofen 200 mg tablet 200 mg PO Q6H PRN pain 06/11 Unknown History mecobalamin (vitamin B12) 1,000 1,000 mcg PO QDAY 05/23 06/15 Unknown History mcg chewable tablet Allergy/AdvReac Type Severity Reaction Status Date / Time No Known Allergies Allergy Verified 08/15/24 07:49 Family History (Updated 06/11/24 @ 09:54 by Rupa Johnston) Father Colon cancer, Onset Age: 80 Other Arthritis CVA (cerebral vascular accident) Cancer Hyperlipemia Hypertension Melanoma Ovarian cancer Respiratory disease Surgical History (Updated 08/12/24 @ 13:46 by Danielle Yao) History of colonoscopy History of shoulder surgery Social History (Updated 06/11/24 @ 09:54 by Rupa Johnston) household members: spouse current occupational status: retired Smoking Status: Never smoker alcohol intake: current alcohol intake frequency: a few times a month Alcohol type: beer substance use type: does not use what type of physical activity do you participate in: walking frequency: daily Past Medical/Surgical History Planned Operation Planned Operative Procedure(s): COLONOSCOPY-OA S.O.S: No Previous Hospitalizations/Surgeries HX Hospitalizations: No HX of Surgeries: colonoscopy right shoulder arthroscopy 2010 Any Problems With Anesthesia: No You/Your Family Experience Fever (Hyperthermia) With Anes: No Cholinesterase deficiency: No Cardiovascular Hx Chest Pain within Last 2 months: No Hx of Irregular Heartbeat and/or Afib: No Hx Heart Attack: No Hx Congestive Heart Failure: No Hx Rheumatic Fever: No Hx Hypertension: No Hx Internal Defibrillator: No Hx Pacemaker: No Hx Cardiac Catheterization: No Hx Cardiac Surgery/Stents/Etc.: No Hx Stress Test: No Hx Pain in Legs when Walking/Leg Cramps: Yes Respiratory Chronic Cough: No HX of Shortness of Breath: No Hoarseness: No Hx Chronic Obstructive Pulmonary Disease (COPD): No Hx Asthma: No Hx Emphysema: No Hx Sleep Apnea: No Hx Respiratory Tract Infection/Cold (presently): No Do You Snore Loudly (louder than talking or can be heard): No Do You Often Feel Tired/ Fatigued/ Sleepy Dring Daytime?: No Has Anyone Observed You Stop Breathing During Sleep?: No Result (for STOP score): Negative Hx Smoking: No Smoking Status: Never smoker Gastrointestinal Hx Gastrointestinal Disorders: No Hx Gastrointestinal Bleed: No Hx Ulcer: No Hx Hiatal Hernia: No Difficulty Chewing/Swallowing: No Special diet followed at home: No Hx Unplanned Weight Loss of 20#: No HX Unplanned Weight Gain of 20#: No Neurological Hx Seizures: No HX Syncope/Blackout Spells/Unconsciousness: Yes (blacked out with intoxication many yrs ago) Hx Transient Ischemic Attacks (TIA): No Hx Multiple Sclerosis: No Hx Parkinson's Disease: No Hx Head/Neck Injury: No Hx Headaches: No Hx Back Injury/Pain: Yes (lower back pain daily) Recent Onset of Speech Difficulty: No Restless Legs: No Does patient have nerve stimulator: No Blood Disorder Hx Leukemia: No Bleeding Tendencies: No Hx Deep Vein Thrombosis: No Hx High Cholesterol: No Blood Transmitted Disease: No Hx Hepatitis: No Hx Cirrhosis: No Hx Anemia: No Hx Blood Disorders: No Genitourinary Hx Renal Disease: No Musculoskeletal Hx Arthritis: Yes Hx Rheumatoid Arthritis: No Hx Gout: No Recent Onset of an Orthopedic Problem: No Endocrine Hx Diabetes: No Thyroid Disease: No Hx Steroid Therapy: No Psycho/Social Hx Substance Use: No Hx Alcohol Use: Yes (social) Hx Anxiety: No Hx Depression: No Mental Illness: No Hx Dementia: No Miscellaneous Hx Cancer: Yes (skin) Recent Exposure to Contagious Disease: No Hx of C-Diff: No Any Loose Teeth: No (full set of dentures) Allergies No Known Allergies Allergy (Verified 08/15/24 07:49) Paternal: Family History (Updated 06/11/24 @ 09:54 by Rupa Johnston) Father Colon cancer, Onset Age: 80 Other Arthritis CVA (cerebral vascular accident) Cancer Hyperlipemia Hypertension Melanoma Ovarian cancer Respiratory disease Cancer Discharge Is Pt Admitted From a Prison, or a [facility]: No After D/C, Where Do you Plan to Go: Return Home From the [facility] History Number of Risk Factors: 4 Vital Signs Vital Signs Vital Signs: 08/15/24 07:50 08/15/24 07:50 Temperature 98.2 F Temperature Source Temporal Pulse Rate 82 Respiratory Rate 18 Respiratory Pattern Normal Blood Pressure 131/93 H Blood Pressure Mean 105 Blood Pressure Source Monitor Blood Pressure Position Sitting Blood Pressure Location Right Arm Pulse Ox 100 Oxygen Delivery Method Room Air Weight Weight: 201 lb 8.04 oz Body Mass Index (BMI) 27.3 Physical Exam Const alert and oriented x3 HEENT normocephalic Eyes PERRL Resp normal respiratory effort and normal air movement Cardio regular rate and regular rhythm GI soft to palpation, non-tender and non-distended Extremity normal to inspection Assessment & Plan Assessment/Plan (1) Encounter for screening for malignant neoplasm of colon: PLAN: I explained endoscopy in detail to the patient. I explained the risks including but not limited to stroke or heart attack with anesthesia, perforation of the GI tract, bleeding, infection. I explained that any of these could necessitate further emergency surgery. The patient understands and all questions were answered sufficiently. The patient wishes to proceed with procedure. Dale Steve MD Pager: [facility] [address] [place] [address], [address] [place] [address] Office: Surgery Risks - Colonoscopy Risks Include but are not Limited To: Risks include but are not limited to: Bleeding, perforation requiring further surgery, inability to complete colonoscopy requiring barium enema.
--- NOTE | 2024-08-15 08:25 | PRE.ANES_ITS ---
ASA Classification* ASA Classification ASA Classification: 2 Assessment & Plan Anesthesia* Anesthesia Assessment Anesthesia Assessment: Discussed sedation and/or anesthesia options, risks, benefits, and alternatives with patient/parents/legal guardian/POA. Questions invited. The patient/parents/legal guardian/POA seems to understand and agrees to proceed with anesthesia plan. Reviewed the physical assessment, medical history, allergy history and patient home medications list prior to surgery/procedure/anesthetic and documented any changes. Performed airway and anesthesia risk assessments. Anesthesia Type Anesthesia Type: MAC History Source History Obtained from:: Patient and Chart Anesthesia Focused Assessment* Temperature: 98.2 F Pulse Rate: 82 Blood Pressure: 131/93 Respiratory Rate: 18 Pulse Ox: 100 Oxygen Delivery Method: Room Air Airway Assessment Mouth opens: >3 cm Mallampati Score: II Teeth Condition: Dentures (Full upper dentures. They are out.) and Partial (Lower partial. It is out. Rest of the teeth are tight.) Neck Range of motion (ROM): Full ROM Focused Labs Anesthesia Preop lab: CBC WBC 5.2 K/mm3 (4.4-11.0) 09/15/23 10:52 09/15/23 RBC 4.50 M/mm3 (4.6-6.2) L 09/15/23 10:52 09/15/23 Hgb 14.9 g/dL (13.0-16.5) 09/15/23 10:52 09/15/23 Hct 45.1 % (40-54) 09/15/23 10:52 09/15/23 Plt Count 256 K/mm3 (150-450) 09/15/23 10:52 09/15/23 CHEMISTRY Potassium 4.9 mmol/L (3.5-5.1) 03/18/24 10:34 03/18/24 Sodium 140 mmol/L (136-145) 03/18/24 10:34 03/18/24 BUN 28 mg/dL (7-18) H 03/18/24 10:34 03/18/24 Creatinine 1.11 mg/dL (0.70-1.30) 03/18/24 10:34 03/18/24 Glucose 100 mg/dL (74-106) 03/18/24 10:34 03/18/24 TSH 2.97 uIU/mL (0.358-3.74) 03/08/23 11:32 COAG Pre-Assessment Diagnosis/Proposed Procedure Planned Operative Procedure(s): COLONOSCOPY-OA Anesthesia History 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 When Was Last Pacemaker Check QUESTION #4 FULL TEXT: You/Your Family Experience fever (hyperthermia) with Anesthesia Last Oral Intake Last Oral intake: Last Oral Intake NPO since 05:30 08/15/24 07:50 Meds taken in AM with sips of Yes 08/15/24 07:50 water? 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 Female No 08/12/24 13:46 HX of Motion Sickness No 08/12/24 13:46 HX of N/V After Surgery No 08/12/24 13:46 Non-Smoker Yes 08/12/24 13:46 Duration of Surgery greater No 08/12/24 13:46 than 60 minutes Number of Risk Factors 1 08/12/24 13:46 PONV Score Low Risk 08/12/24 13:46 Height & Weight Height & Weight: Anesthesia: Height & Weight Height 6 ft 08/15/24 07:50 Weight: 91.4 kg 08/15/24 07:50 Body Mass Index (BMI) 27.3 08/15/24 07:50 Respiratory Assessment Respiratory Assessment - cold type composing machine operator: Respiratory Tract Infection Hx - cold type composing machine operator Hx Respiratory Tract Infection No 08/15/24 08:20 STOP Sleep Apnea STOP Sleep Apnea - cold type composing machine operator: STOP Sleep Apnea - cold type composing machine operator Hx Hypertension No 08/15/24 08:20 Hx Sleep Apnea No 08/15/24 08:20 CPAP BIPAP Do you snore loudly (louder No 08/15/24 08:20 than talking or can be heard Do you often feel tired/ No 08/15/24 08:20 fatigued/ sleepy during daytime? Has anyone observed you stop No 08/15/24 08:20 breathing during sleep? STOP Results Negative 08/15/24 08:20 QUESTION #5 FULL TEXT : Do you snore loudly (louder than talking or can be heard through closed doors)? 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 Specify any problems Hx of Preganancy in last 3 N/A 08/12/24 13:46 Months Nurse Filling Out Transfusion VCHRISTIN 08/12/24 13:46 & Questions: Date: 08/12/24 08/12/24 13:46 Time: 13:47 08/12/24 13:46 Patient unable to answer at this time (ie. 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Type diphenhydramine 25 1 tab PO QHS PRN sleep 08/03 Unknown History mg-acetaminophen 500 mg tablet (Tylenol PM Extra Strength) diphenhydramine HCl 25 mg capsule 25 mg PO QHS PRN sle ep 08/03/18 Unknown History (Benadryl) multivitamin 1 tab PO DAILY 07/02/21 Unkn own History meloxicam 15 mg tablet See Rx Instructions .Route 1 06/15/23 Unknown Rx .COMPLEX #90 tabs dicyclomine 20 mg tablet 20 mg PO TID PRN abdominal 1 07/17/23 Unknown Rx discomfort #90 tabs ibuprofen 200 mg tablet 200 mg PO Q6H PRN pain 06/11 Unknown History mecobalamin (vitamin B12) 1,000 1,000 mcg PO QDAY 05/23 06/15 Unknown History mcg chewable tablet Allergy/AdvReac Type Severity Reaction Status Date / Time No Known Allergies Allergy Verified 08/15/24 07:49 Family History Father Colon cancer, Onset Age: 80 Other Arthritis CVA (cerebral vascular accident) Cancer Hyperlipemia Hypertension Melanoma Ovarian cancer Respiratory disease Surgical History History of colonoscopy History of shoulder surgery Social History household members: spouse current occupational status: retired Smoking Status: Never smoker alcohol intake: current alcohol intake frequency: a few times a month Alcohol type: beer substance use type: does not use what type of physical activity do you participate in: walking frequency: daily Review of Systems (Anesthesia) ROS Narrative System reviewed and no additional complaints, except as documented.
--- NOTE | 2024-08-15 08:52 | OP.CCLET_ITS ---
08/15/2024 Naa Delcid MD [address] [place] [address] [place] [address] Re : Colonoscopy procedure for Cody Barbosa Dear Dr. Delcid This procedure was performed on July. My impressions and recommendations are as follows: Impressions : - The entire examined colon is normal on direct and retroflexion views. - No specimens collected. Recommendations : - Discharge patient to home. - Resume previous diet. - Continue present medications. - Repeat colonoscopy is not recommended due to current age (66 years or older) for screening purposes. My findings are described in the full procedure note, which is enclosed. If I can be of further assistance, please feel free to contact me at Doctor phone number(s): , Work: . Sincerely, Dale Steve MD 08/15/2024 8:52:17 AM This report has been signed electronically.
--- NOTE | 2024-08-15 08:52 | OP.COLON_ITS ---
Patient Name: Cody Barbosa Procedure Date: 08/15/2024 8:18 AM Date of : 1955 Age: 69 Procedure: Colonoscopy Indications: Screening patient at increased risk: Family history of 1st-degree relative with colorectal cancer at age 60 years (or older) Providers: Dale Steve MD Medicines: Propofol per Anesthesia Patient Profile: This is a 69 year old male. Refer to note in patient chart for documentation of history and physical. Last Colonoscopy: several years ago. Complications: No immediate complications. Procedure: Pre-Anesthesia Assessment: - Prior to the procedure, a History and Physical was performed, and patient medications and allergies were reviewed. The patient's tolerance of previous anesthesia was also reviewed. The risks and benefits of the procedure and the sedation options and risks were discussed with the patient. All questions were answered, and informed consent was obtained. Prior Anticoagulants: The patient has taken no anticoagulant or antiplatelet agents. After reviewing the risks and benefits, the patient was deemed in satisfactory condition to undergo the procedure. After I obtained informed consent, the scope was passed under direct vision. Throughout the procedure, the patient's blood pressure, pulse, and oxygen saturations were monitored continuously. The colonoscope was introduced through the anus and advanced to the cecum, identified by appendiceal orifice and ileocecal valve. The colonoscopy was performed without difficulty. The patient tolerated the procedure well. The quality of the bowel preparation was good. The ileocecal valve, appendiceal orifice, and rectum were photographed. Scope In: 8:37:34 AM Scope Withdrawal Time 0 hours 6 minutes 14 seconds Scope Out: 8:49:25 AM Total Procedure Duration Time 0 hours 11 minutes 51 seconds Findings: The entire examined colon appeared normal on direct and retroflexion views. Impression: - The entire examined colon is normal on direct and retroflexion views. - No specimens collected. Recommendation: - Discharge patient to home. - Resume previous diet. - Continue present medications. - Repeat colonoscopy is not recommended due to current age (66 years or older) for screening purposes. Procedure Code(s): --- Professional --- 20940, Colonoscopy, flexible; diagnostic, including collection of specimen(s) by brushing or washing, when performed (separate procedure) Diagnosis Code(s): --- Professional --- Z80.0, Family history of malignant neoplasm of digestive organs CPT copyright 2021 [employer]. All rights reserved. The codes documented in this report are preliminary and upon bedspread seamer review may be revised to meet current compliance requirements. Dale Steve MD 08/15/2024 8:52:17 AM This report has been signed electronically. Number of Addenda: 0 Note Initiated On: 08/15/2024 8:18 AM
--- NOTE | 2024-08-15 08:56 | PCM.POST.ANE ---
Anesthesia: Postop Eval I Current Vital Signs Temperature: 97.8 F Pulse Rate: 82 Blood Pressure: 119/86 Respiratory Rate: 18 Pulse Ox: 96 Oxygen Delivery Method: Room Air Assessment Airway patent: Yes Spontaneous unlabored respirations: Yes Mental status: Asleep nausea: No Vomiting: No Anesthesia Complication: No Fluid Hydration Crystalloid volume administer (ml): 30 Total IV fluid infused: 30 Progress Note Anesthesia document: Postop Eval 1 completed: Yes
--- NOTE | 2024-08-15 22:25 | PCM.POSTANE2 ---
Anesthesia Postop Eval I Sum Postop Eval Completion status Anesthesia document: Postop Eval 1 completed: Yes Anesthesia Postop Eval I Summary Anesthesia Postop Eval I Summary: Anesthesia Postop Eval I: Assessment Summary Airway patent Yes 08/15/24 08:58 [email or web address] Spontaneous unlabored Yes 08/15/24 08:58 [email or web address] respirations Mental status Asleep 08/15/24 08:58 [email or web address] nausea No 08/15/24 08:58 [email or web address] Vomiting No 08/15/24 08:58 [email or web address] Anesthesia Postop Eval I: Fluid Summary Crystalloid volume administer 30 08/15/24 08:58 [email or web address] (ml) Colloids volume administered ( ml) Blood Product volume administered (ml) Total IV fluid infused 30 08/15/24 08:58 [email or web address] Anesthesia Postop Eval I: Summary Notes Anesthesia Complication No 08/15/24 08:58 [email or web address] Anesthesia Complication Comment: Post-operative progress note Anesthesia: Postop Eval II Evaluation Mental status: Awake and Calm Pain Level: 0 nausea: No Vomiting: No Complications Anesthesia Complication: No
== END 2024-08-15 09:29 | disposition home or self-care (01) ==
LOC: EN 07:26 → AC 07:27
PROVIDERS: PCP Internal Medicine; Referring Provider Internal Medicine; Visit Provider Surgery
PROC: 0DJD8ZZ Inspection of Lower Intestinal Tract, Via Natural or Artificial Opening Endoscopic (ICD-10-PCS; CPT 45378; principal; 2024-08-15 08:25)
DX: Z12.11 Encounter for screening for malignant neoplasm of colon (principal); G89.29 Other chronic pain; I10 Essential (primary) hypertension; Z80.0 Family history of malignant neoplasm of digestive organs; M54.9 Dorsalgia, unspecified
CPT/HCPCS: G0121; A4216; J2405

== ENCOUNTER → 2024-09-27 | Outpatient (CLI) | payer MEDICARE, SELFPAY ==
[2024-09-27 13:41] LABS: Absolute Lymphocyte Count 1.35 X10^3/uL (0.83-4.51); Basophil# 0.04 X10^3/uL; Basophil% 0.8 % (0-1); Hemoglobin 15.1 g/dL (13.0-16.5); Lymphocyte # 1.35 X10^3/ul (0.83-4.51); Lymphocyte % 26.5 % (19-41); Mean Corp Hgb Conc 32.8 g/dL (32-36); Mean Corpuscular Hgb 33.2 pg (27.0-32.0); Mean Corpuscular Volume 101.1 fL (80-94); Monocyte# 0.62 X10^3/uL; Monocyte% 12.2 % (0-10); NRBC Flagged by Analyzer 0 % (0-5); Neutrophil # 2.97 X10^3/uL (2.7-7.7); Neutrophil % 58.3 % (47-70); Platelet Count 261 K/mm3 (150-450); RBC Distribution Width SD 48.5 fl (35.1-43.9); Red Blood Count 4.55 M/mm3 (4.6-6.2); White Blood Count 5.1 K/mm3 (4.4-11.0)
[2024-09-27 14:20] LABS: ALB/GLOB Ratio 1.4 RATIO (0.9-2.4); AST(SGOT) 29 U/L (<=37); Alanine Aminotransfer ALT/SGPT 31 U/L (<=46); Albumin, Serum 4.2 g/dL (3.4-4.8); Alkaline Phosphatase 85 U/L (40-129); Anion Gap 9 (5-15); BUN 23 mg/dL (4-19); BUN/Creat Ratio 20.8 RATIO (10-20); Calcium,Total 9.6 mg/dL (7.6-11.0); Carbon Dioxide 25.6 mmol/L (21.0-32.0); Chloride 106 mmol/L (98-108); Creatinine, Serum 1.09 mg/dL (0.70-1.20); EST Glomerular Filtration Rate 73 (>60); Globulin 3.1 g/dL (2.2-4.2); Glucose 103 mg/dL (70-99); PSA,Total - Annual Screen 0.79 ng/mL (0.02-4.00); Potassium 4.8 mmol/L (3.3-5.1); Protein, Total 7.2 g/dL (5.9-8.4); Sodium Level 140 mmol/L (133-145); Total Bilirubin 0.68 mg/dL (0.00-1.30)
[2024-09-29 10:07] LABS: Rubeola IgG Ab > 300.0 AU/mL (Immune >16.4)
== END | disposition home or self-care (01) ==
LOC: BIMLAB 08:19
PROVIDERS: PCP Internal Medicine; Referring Provider Internal Medicine; Visit Provider Internal Medicine
DX: Z01.84 Encounter for antibody response examination (principal); I10 Essential (primary) hypertension; Z12.5 Encounter for screening for malignant neoplasm of prostate
CPT/HCPCS: 36415; 80053; 84153; 85025; 86765; G0103

== ENCOUNTER → 2024-10-01 | Outpatient (CLI) | payer MEDICARE, SELFPAY ==
--- NOTE | 2024-10-01 12:36 | RAD_ITS ---
PROCEDURE: HIP, UNI W/ PELVIS 2-3 VIEWS 10/01/2024 REASON FOR EXAM: RIGHT HIP PAIN TECHNIQUE: One (1) view of the right hip COMPARISON: None RAD/HIP, UNI W/ Pelvis 2-3 Views IMPRESSION: A solitary AP right hip view is presented. Minimal to mild right hip degenerative changes are seen, without associated dominique nt narrowing. No evidence of femoral head osteonecrosis. Limited imaging of the right sacroiliac joint demonstrates minimal degenerative changes. No fracture or dislocation is seen on this solitary image. Reading Location: [place] [address]
== END | disposition home or self-care (01) ==
LOC: MTRAD 12:36
PROVIDERS: PCP Internal Medicine; Referring Provider Internal Medicine; Visit Provider Internal Medicine
DX: M25.551 Pain in right hip (principal)
CPT/HCPCS: 73502

== ENCOUNTER 2024-10-16 09:20 | Outpatient (RCR) | payer MEDICARE, SELFPAY ==
--- NOTE | 2024-10-16 10:56 | HP.PTEVAL_ITS ---
Patient's Visit Information Visit Information Visit Information: MICHELLE MESA is a 69 year old M referred to Physical Therapy by Dr. Naa Delcid MD with a diagnosis of Pain in right hip ,dorsalgia. Date of Evaluation: 10/16/24 Physical Therapist: Giovani Lew PT, Cert MDT, OCS Visit Plan Frequency: 2x /Week Duration: 4 Weeks Plan: PT INTERVENTIONS LE FLEXABILITY HAMSTRINGS/GLUT/PIRIFORMIS ,STRENGTHENING GLUT/HAMSTRINGS ,MOLLY EX'S, ADN MODALITIES Subjective Subjective: This 69 y/o male presents to physical therapy with right posterior gluteus. Patient seen DR whitfield PT x-rays hip mild OA. Pain medication relaxer and has meloxicam . Patient pain located right glut and will increases to hamstrings to calf with extended sitting. Patient aggravating factors sitting 30 mins and driving. Alleviating factors walking/standing. No symptoms with bending/lifting. Patient has occasional paresthesia in right foot. Coughing/snee zing-. Bowel/bladder-. No injury or trauma. Patient has h/o back pain. No pain with squatting/stairs.Patient condition affects QOL and function/sitting. SOCIAL: VOCATION: retired Pain Right Buttocks: Pain Intensity (Out of 10): 2 Pain Intensity Range: 10 Objective Objective: POSTURE: mild forward posture GAIT: reciprocal pattern NEURO: denies paresthesia/tingling ,reflexes L3-4,L4-5,L5- S1 2/3 PALPATION: tender ischial tuberosity hamstrings mild FLEXABILITY:hamstrings min/mod tightness MMT: quads/hams 4/5 sight soreness with testing right hamstrings ,hip flexion 4/5 LUMBAR ROM: flexion min loss ,extension min loss ,side glides min loss Special Tests L/S Slump test left side: Negative L/S Slump test right side: Negative L/S Left Straight Leg Raise: Negative L/S Right Straight Leg Raise: Negative Lumbar Standing: Flexion - Mechanical Response: No effect Lumbar Standing: Flexion - Symptoms During Testing: No effect Lumbar Standing: Flexion - Symptoms After Testing: No effect Lumbar Standing: Extension - Mechanical Response: No effect Lumbar Standing: Extension - Symptoms During Testing: No effect Lumbar Standing: Extension - Symptoms After Testing: No effect Lumbar Standing: Right Side Glides - Mechanical Response: No effect Lumbar Standing: Right Side Hudson - Symptoms During Testing: No effect Lumbar Standing: Right Side [place] - Symptoms After Testing: No effect Lumbar Standing: Left Side [place] - Mechanical Response: No effect Lumbar Standing: Left Side [place] - Symptoms During Testing: No effect Lumbar Standing: Left Side [place] - Symptoms After Testing: No effect Lumbar Lying: Flexion - Mechanical Response: No effect Lumbar Lying: Flexion - Symptoms During Testing: No effect Lumbar Lying: Flexion - Symptoms After Testing: No effect Lumbar Lying: Extension - Mechanical Response: No effect Lumbar Lying: Extension - Symptoms During Testing: No effect Lumbar Lying: Extension - Symptoms After Testing: No effect Balance/Special Test Scores Oswestry Low Back Score: 17 Goals Goal 1:: Patient to be I with HEP Goal Time Frame: 4-6 Weeks Goal 2:: Patient to demonstrate 50% improvement with less pain and improved function Goal Time Frame: 4-6 Weeks Goal 3:: Patient to improve ability to sit w/o pain when driving Goal Time Frame: 4-6 Weeks Goal 4:: Patient to improve back oswestry score by 5 points to improve QOL and function. Rehabilitation Potential Physical Therapy Diagnosis: Patient has right pain in glut and occasional symptoms radiate to calf with extended sitting ,patient had occasional parestehesia in foot no pain with motion testing only sitting thus benefit from skilled PT Rehabilitation Potential: Good Anticipated Interventions Patient/Client Instruction: Educate patient on: Condition and Plan of Care For the Purpose of:: To decrease pain, To increase ROM, To improve muscle performance and motor function, To improve ability to perform ADL's, To increase tolerance to activity/condition/position, To improve ability of physical actions for home/community/work/leisure, To improve health of tissue, To decrease soft tissue restriction and To increase flexibility/ROM Other: DRIVING Therapeutic Exercise to Include: Strength training, Body mechanics, Postural training, Flexibilty training, Dynamic Lumbar Stabilization and Molly Exercises Comment: HAMSTRINGS /GLUT For the Purpose of:: To decrease pain, To increase ROM, To improve muscle performance and motor function, To improve ability to perform ADL's, To increase tolerance to activity/condition/position, To improve ability of physical actions for home/community/work/leisure, To improve health of tissue, To decrease soft tissue restriction and To reduce risk of recurrence TENS: Yes IF ES: Yes Cryotherapy (ice pack, ice massage): Yes Thermo therapy (hot pack): Yes Ultrasound (thermal/non thermal): Yes For the Purpose of:: To decrease pain, To increase ROM, To improve nutrient delivery to tissue, To increase oxygenation perfusion, To improve health of tissue and To decrease soft tissue restriction Text: Thank you for the opportunity to evaluate your patient. For Medicare and Medicare HMO plans, please review the plan of care and approve it. It will need to be FAXED BACK to us at [phone] for Medicare purposes. For Medicare only, by signing this I certify the plan of care. Please let me know if there are questions or concerns regarding this plan of care. Physician Signature: Date:
--- NOTE | 2024-12-31 12:34 | HP.PTDCNRP_ITS ---
Patient Information Patient Information: MICHELLE MESA was seen in my office for initial evaluation on 10/16/24. The following Plan of Care was established for this patient: POC Established Initial Frequency: 2x /Week Initial Duration: 4 Weeks Anticipated Interventions Patient/Client Instruction: Educate patient on: Condition and Plan of Care For the Purpose of:: To decrease pain, To increase ROM, To improve muscle performance and motor function, To improve ability to perform ADL's, To increase tolerance to activity/condition/position, To improve ability of physical actions for home/community/work/leisure, To improve health of tissue, To decrease soft tissue restriction and To increase flexibility/ROM Other: DRIVING Therapeutic Exercise to Include: Strength training, Body mechanics, Postural training, Flexibilty training, Dynamic Lumbar Stabilization and Corie Exercises For the Purpose of:: To decrease pain, To increase ROM, To improve muscle performance and motor function, To improve ability to perform ADL's, To increase tolerance to activity/condition/position, To improve ability of physical actions for home/community/work/leisure, To improve health of tissue, To decrease soft tissue restriction and To reduce risk of recurrence TENS: Yes IF ES: Yes Cryotherapy (ice pack, ice massage): Yes Thermo therapy (hot pack): Yes Ultrasound (thermal/non thermal): Yes For the Purpose of:: To decrease pain, To increase ROM, To improve nutrient delivery to tissue, To increase oxygenation perfusion, To improve health of tissue and To decrease soft tissue restriction Last Seen Last Seen: This patient was last seen in our office . Pertinent comments regarding their Physical therapy will appear below: Patient was seen for PT for posterior hip pain for HEP alyssa is d/c At this point I will be discontinuing this patient from physical therapy. I wou ld be happy to see this patient again in the future if found appropriate by the physician. Thank you! Giovani Lew, PT, Cert MDT, OCS Balance/Gait/Functional tests Balance/Special Test Scores Oswestry Low Back Score: 17
== END 2024-10-16 19:00 | disposition home or self-care (01) ==
LOC: PT 09:20
PROVIDERS: PCP Internal Medicine; Referring Provider Internal Medicine; Visit Provider Internal Medicine
DX: M25.551 Pain in right hip (principal); M54.9 Dorsalgia, unspecified
CPT/HCPCS: 97110; 97162

== ENCOUNTER → 2025-03-20 | Outpatient (CLI) | payer MEDICARE, SELFPAY ==
[2025-03-20 15:13] LABS: Hematocrit 45.3 % (40-54); Hemoglobin 15.3 g/dL (13.0-16.5); Immature Granulocytes Count 0.020 X10^3/uL (0.0-0.0); Mean Corp Hgb Conc 33.8 g/dL (32-36); Mean Corpuscular Volume 98.7 fL (80-94); Mean Platelet Vol. 10.4 fl (6.2-12.0); NRBC Flagged by Analyzer 0 % (0-5); Platelet Count 253 K/mm3 (150-450); RBC Distribution Width CV 12.9 % (11.6-14.6); RBC Distribution Width SD 46.2 fl (35.1-43.9); Red Blood Count 4.59 M/mm3 (4.6-6.2); White Blood Count 6.2 K/mm3 (4.4-11.0)
[2025-03-20 15:31] LABS: Anion Gap 11 (5-15); BUN 22 mg/dL (4-19); BUN/Creat Ratio 19.6 RATIO (10-20); Calcium,Total 9.6 mg/dL (7.6-11.0); Carbon Dioxide 24.6 mmol/L (21.0-32.0); Chloride 105 mmol/L (98-108); Glucose 98 mg/dL (70-99); Potassium 4.4 mmol/L (3.3-5.1)
[2025-03-22 09:09] LABS: Lyme Scn Total Ab w/Rflx Negative (Negative)
== END | disposition home or self-care (01) ==
PROVIDERS: PCP Internal Medicine; Referring Provider Internal Medicine; Visit Provider Internal Medicine
DX: I10 Essential (primary) hypertension (principal); W57.XXXA Bitten or stung by nonvenomous insect and other nonvenomous arthropods, initial encounter
CPT/HCPCS: 36415; 80048; 85025; 86618